=== PATIENT | female | born 1975 | race Caucasian/White ===

== ENCOUNTER → 2016-08-22 | Outpatient (CLI) | payer OTHER ==
[~2016-08-22] MED LIST: PRENTAB26 PO
--- NOTE | 2016-08-22 13:47 | MAMMOGRAPHY REPORT ---
BILATERAL DIGITAL DIAGNOSTIC MAMMOGRAM TOMOSYNTHESIS AND TARGETED LEFT ULTRASOUND: 08/22/2016 CLINICAL HISTORY: The patient reports a left breast lump which she has had for years, and she states that it has been stable on clinical exam for years. This area was biopsied with a fine-needle aspi ration in 2007, with pathology showing a benign breast aspirate with differential including fibroade noma versus fibrocystic change. TECHNIQUE: Breast tomosynthesis in addition to standard 2D mammography was performed. Bilateral CC and MLO 2-D and tomosynthesis images and spot magnification left CC and ML views were obtained. COMPARISON: An ultrasound was performed in 2007; the images are not available for review, however, t he report states that no abnormality was seen in the left upper inner quadrant where the targeted ul trasound was performed. BREAST COMPOSITION: The tissue of both breasts is extremely dense, which lowers the sensitivity of mammography. FINDINGS: There is an oval partially circumscribed and partially obscured mass with a septation versus 2 adjac ent masses in the left subareolar/9:00 breast, the largest measuring approximately 2.8 cm. Spot mag nification views demonstrate faint, predominantly punctate, calcifications seen within the mass. The remainder of both breasts are negative, without suspicious masses, complications, or areas of ar chitectural distortion noted. A few punctate benign-appearing calcifications are seen scattered wit hin both breasts. Targeted ultrasound was performed of the area of the mammographic mass. In the left subareolar sarmad st, there is an oval parallel circumscribed hypoechoic mass which measures 2.7 x 1.0 x 3 cm. An ech ogenic septation is seen within the mass. This corresponds with the mammographic mass. Per report, a fine-needle aspiration was performed of this mass in 2007 which yielded a benign breast aspirate, with differential including a fibroadenoma or fibrocystic change. Given the circumscribed nature o f the mass and given that it was previously biopsied, it is probably benign and may represent a fibr oadenoma. Given that it is newly seen on imaging and given the presence of calcifications within th e mass which are newly visualized, recommend short interval follow-up in 6 months. IMPRESSION: ACR-BI-RADS CATEGORY 3: PROBABLY BENIGN, TARGETED ULTRASOUND ACR-BI-RADS CATEGORY 3: ID OBABLY BENIGN Circumscribed 3 cm hypoechoic mass in the left subareolar breast, with faint calcifications seen wit hin the mass. A fine-needle aspiration was performed of the mass in 2007, with pathology showing a benign breast aspirate with differential including fibroadenoma or fibrocystic change. Given the ci rcumscribed nature of the mass and given that it was previously biopsied, it is probably benign and may represent a fibroadenoma. Given that the mass and calcifications are newly visualized on imagin g, recommend follow-up diagnostic mammograms and ultrasound of the left breast in 6 months to confir m stability. The patient has been verbally notified of the results. Approximately 10% of breast cancers are not detected with mammography. A negative mammographic repor t should not delay biopsy if a clinically suggestive mass is present. Neela Becker M.D. ah/:08/22/2016 09:30:40 Monogram Maker: Yessi MULTANI)(Denise), [facility] letter sent: Follow Up Recommended 3 BI-RADS Code: ACR-BI-RADS Category 3: Probably Benign Ultrasound BI-RADS: ACR-BI-RADS Category 3: P robably Benign
== END | disposition home or self-care (01) ==
LOC: C.MAMM 07:42
PROVIDERS: ATTEND Obstetrics & Gynecology
DX: R92.8 Other abnormal and inconclusive findings on diagnostic imaging of breast (principal); N63 Unspecified lump in breast

== ENCOUNTER → 2017-02-20 | Outpatient (CLI) | payer OTHER ==
--- NOTE | 2017-02-20 13:48 | MAMMOGRAPHY REPORT ---
UNILATERAL LEFT DIGITAL DIAGNOSTIC MAMMOGRAM TOMOSYNTHESIS WITH CAD AND TARGETED LEFT ULTRASOUND: 02/20 CLINICAL HISTORY: 41-year-old woman presents for follow-up of a benign-appearing circumscribed mass w ith faint associated calcifications in the left subareolar breast. Fine-needle aspiration was perfor med in 2007 yielding benign pathology results, but no sonographic images are available from 2007 to d ocument stability. TECHNIQUE: Left breast tomosynthesis in addition to standard 2D mammography was performed. Current st udy was also evaluated with a Computer Aided Detection (CAD) system. COMPARISON: Comparison is made to exams dated: 02/20/2017 ultrasound, 08/22/2016 ultrasound[facility]. BREAST COMPOSITION: The tissue of the left breast is extremely dense, which lowers the sensitivity o f mammography. FINDINGS: There is a well-circumscribed, 2.4 x 2.9 x 3.2 cm mass in the anterior subareolar left brad ast. There are associated punctate microcalcifications which are not significantly changed in number or distribution on the spot magnification views. No new suspicious mass, architectural distortion o r cluster of microcalcifications is seen in the left breast. Targeted ultrasound was performed in the retroareolar left breast. A parallel hypoechoic solid circu mscribed lobulated mass is again identified, measuring 2.9 x 0.9 x 3.2 cm. 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 Anothe r six-month follow-up targeted ultrasound is recommended to ensure longer stability. IMPRESSION: ACR-BI-RADS CATEGORY 3: PROBABLY BENIGN, TARGETED ULTRASOUND ACR-BI-RADS CATEGORY 3: PRO BABLY BENIGN There is a stable benign-appearing circumscribed mass with associated punctate microcalcifications in the retroareolar anterior left breast, that most likely represents a fibroadenoma. Given lack of pr ior images to document long-term stability, another six-month follow-up diagnostic mammogram includin g spot magnification views and repeat targeted ultrasound is recommended in 6 months. Annual right m ammography is also due at that time. These results and recommendations were discussed with the patient at the time of the exam. Approximately 10% of breast cancers are not detected with mammography. A negative mammographic report should not delay biopsy if a clinically suggestive mass is present. Miranda Dustin M.D. ay/:02/20/2017 08:20:20 Signal System Testing Maintainer: Balbina Jordan, [facility] letter sent: Follow Up Recommended 3 BI-RADS Code: ACR-BI-RADS Category 3: Probably Benign Ultrasound BI-RADS: ACR-BI-RADS Category 3: Pr obably Benign
== END | disposition home or self-care (01) ==
LOC: C.MAMM 07:43
PROVIDERS: ATTEND Obstetrics & Gynecology
DX: N63 Unspecified lump in breast (principal); R92.0 Mammographic microcalcification found on diagnostic imaging of breast

== ENCOUNTER → 2017-06-09 | Outpatient (CLI) | payer OTHER | END | disposition home or self-care (01) | LOC: C.PAPS 13:49 | PROVIDERS: ATTEND Obstetrics & Gynecology | DX: Z12.4 Encounter for screening for malignant neoplasm of cervix (principal) ==